=== PATIENT | female | born 1955 | race Asian ===

== ENCOUNTER 2018-01-08 05:04 | Emergency (ER) | payer SELFPAY, OTHER ==
[2018-01-08] MEDS: DIPHENHYDRAMINE 50 MG INJ IM (06:35)
[2018-01-08] MEDS: FAMOTIDINE 20 MG TAB PO (06:35)
[2018-01-08] MEDS: predniSONE 20 MG TAB PO (06:35)
== END 2018-01-08 07:03 | disposition home or self-care (01) ==
LOC: FTE 05:04
DX: H57.8 Other specified disorders of eye and adnexa (principal); I10 Essential (primary) hypertension; T65.891A Toxic effect of other specified substances, accidental (unintentional), initial encounter; Z87.891 Personal history of nicotine dependence
CPT/HCPCS: 96372; 99284-25

== ENCOUNTER 2018-01-11 08:45 | Emergency (ER) | payer SELFPAY ==
[2018-01-11] MEDS: FAMOTIDINE 20 MG INJ IV (09:39)
[2018-01-11] MEDS: METHYLPREDNISOLONE 125 MG INJ IV (09:39)
[2018-01-11] MEDS: DIPHENHYDRAMINE 50 MG INJ IV (09:39)
[2018-01-11] MEDS: SOD CHLORIDE 0.9% 1,000 ML IV (09:40)
== END 2018-01-11 11:24 | disposition home or self-care (01) ==
LOC: FTE 08:45
DX: H57.8 Other specified disorders of eye and adnexa (principal); R22.0 Localized swelling, mass and lump, head; I10 Essential (primary) hypertension
CPT/HCPCS: 96374; 96375; 99284-25

== ENCOUNTER 2018-01-25 20:16 | Emergency (ER) | payer SELFPAY ==
[2018-01-25] MEDS: FAMOTIDINE 20 MG TAB PO (23:29)
[2018-01-25] MEDS: METHYLPREDNISOLONE 125 MG INJ IM (23:30)
== END 2018-01-25 23:40 | disposition home or self-care (01) ==
LOC: FTE 20:16
DX: L30.9 Dermatitis, unspecified (principal); I10 Essential (primary) hypertension
CPT/HCPCS: 96372; 99284-25

== ENCOUNTER 2018-03-02 22:10 | Emergency (ER) | payer SELFPAY | END 2018-03-03 01:52 | disposition left against medical advice (07) | LOC: FTE 22:10 | DX: Z53.21 Procedure and treatment not carried out due to patient leaving prior to being seen by health care provider (principal) ==

== ENCOUNTER 2018-03-09 17:12 | Emergency (ER) | payer SELFPAY ==
[2018-03-09] MEDS: DIPHENHYDRAMINE 50 MG INJ IM (19:14)
[2018-03-09] MEDS: METHYLPREDNISOLONE 125 MG INJ IM (19:14)
== END 2018-03-09 20:10 | disposition home or self-care (01) ==
LOC: FTE 17:12
DX: L30.9 Dermatitis, unspecified (principal); T78.40XA Allergy, unspecified, initial encounter; I10 Essential (primary) hypertension; Z87.891 Personal history of nicotine dependence
CPT/HCPCS: 96372; 99284-25

== ENCOUNTER 2018-12-24 15:09 | Emergency (ER) | payer MEDICAID | END 2018-12-24 16:36 | disposition home or self-care (01) | LOC: FTE 15:09 | DX: F41.9 Anxiety disorder, unspecified (principal); I10 Essential (primary) hypertension | CPT/HCPCS: 99283; Z7502 ==

== ENCOUNTER 2019-01-26 11:39 | Emergency (ER) | payer MEDICAID ==
[2019-01-26] MEDS: DEXAMETHASONE 10 MG/ML 1 ML INJ IM (13:39)
== END 2019-01-26 13:43 | disposition home or self-care (01) ==
LOC: FTE 13:43
DX: R21 Rash and other nonspecific skin eruption (principal); I10 Essential (primary) hypertension; F17.210 Nicotine dependence, cigarettes, uncomplicated
CPT/HCPCS: 96372; 99284-25

== ENCOUNTER 2019-02-11 20:59 | Emergency (ER) | payer MEDICAID ==
[2019-02-12] MEDS ORDERED: DEXAMETHASONE 10 MG/ML 1 ML INJ IV (01:00)
[2019-02-12] MEDS: DIPHENHYDRAMINE 25 MG CAP PO (01:09)
[2019-02-12] MEDS: DEXAMETHASONE 10 MG/ML 1 ML INJ IM (01:09)
== END 2019-02-12 01:21 | disposition home or self-care (01) ==
LOC: E/R 20:59
DX: L30.9 Dermatitis, unspecified (principal); I10 Essential (primary) hypertension
CPT/HCPCS: 96372; 99284-25

== ENCOUNTER 2019-02-16 16:23 | Emergency (ER) | payer MEDICAID ==
[2019-02-16] MEDS: METHYLPREDNISOLONE 125 MG INJ IM (21:28)
[2019-02-16] MEDS: LORAZEPAM 1 MG TAB PO (21:29)
== END 2019-02-16 21:54 | disposition home or self-care (01) ==
LOC: FTE 21:54
DX: L30.9 Dermatitis, unspecified (principal); I10 Essential (primary) hypertension; F17.210 Nicotine dependence, cigarettes, uncomplicated
CPT/HCPCS: 96372; 99284-25

== ENCOUNTER 2019-05-13 09:08 | Emergency (ER) | payer MEDICAID | END 2019-05-13 10:05 | disposition home or self-care (01) | LOC: FTE 09:08 | DX: L20.82 Flexural eczema (principal); Z91.040 Latex allergy status | CPT/HCPCS: 99281 ==

== ENCOUNTER 2019-05-24 11:42 | Emergency (ER) | payer MEDICAID ==
[2019-05-24] MEDS: METHYLPREDNISOLONE 125 MG INJ IM (13:51)
== END 2019-05-24 14:28 | disposition home or self-care (01) ==
LOC: FTE 14:28
DX: R21 Rash and other nonspecific skin eruption (principal); I10 Essential (primary) hypertension; E03.9 Hypothyroidism, unspecified; F17.210 Nicotine dependence, cigarettes, uncomplicated; Z91.040 Latex allergy status
CPT/HCPCS: 96372; 99284-25

== ENCOUNTER 2019-08-07 16:24 | Emergency (ER) | payer MEDICAID ==
[2019-08-07] MEDS: METHYLPREDNISOLONE 125 MG INJ IM (18:34)
== END 2019-08-07 18:55 | disposition home or self-care (01) ==
LOC: FTE 16:24
DX: L25.9 Unspecified contact dermatitis, unspecified cause (principal); I10 Essential (primary) hypertension; E03.9 Hypothyroidism, unspecified; F17.210 Nicotine dependence, cigarettes, uncomplicated; Z91.040 Latex allergy status
CPT/HCPCS: 96372; 99284-25